=== PATIENT | male | born 1965 | race Caucasian/White ===

== ENCOUNTER 2016-12-28 00:34 | Emergency (ER) | payer OTHER ==
--- NOTE | 2016-12-28 01:04 | EKG ---
[address] [address] Test Date: 2016-12-28 Test Time: 00:45:05 Pat Name: JORGE LUIS JIANGTavaresPee Department: Room: Gender: M [employer]: : 1965 Requested By: JUSTIN KWON Order Number: [id number] Reading MD: Measurements Intervals [place] Rate: 59 P: 37 FL: 158 QRS: 51 QRSD: 132 T: 5 QT: 420 QTc: 416 Interpretive Statements SINUS RHYTHM NON SPECIFIC INTRAVENTRICULAR BLOCK QRS(T) CONTOUR ABNORMALITY CANNOT RULE OUT ANTEROSEPTAL MYOCARDIAL DAMAGE RI6.01 Unconfirmed report No previous ECG available for comparison
[2016-12-28] MEDS ORDERED: ASPIRIN 81 MG TAB.CHEW PO ONE (01:15)
[2016-12-28 01:27] LABS: BASO # 0.1 x10^3/uL (0.0-0.2); BASO % 1 % (0-3); EOS # 0.1 x10^3/uL (0.0-0.7); EOS % 1 % (0-3); HEMATOCRIT 40.6 % (39.0-53.0); HEMOGLOBIN 13.8 g/dL (13.0-17.5); LYMPH # 2.8 x10^3/uL (1.0-4.8); LYMPH % 35 % (24-48); MEAN CORPUSCULAR HEMOGLOBIN 29 pg (25-35); MEAN CORPUSCULAR HGB CONC 34 g/dL (31-37); MEAN CORPUSCULAR VOLUME 87 fL (79-100); MONO # 0.6 x10^3/uL (0.0-1.1); MONO % 8 % (0-9); NEUT # 4.5 x10^3uL (1.8-7.7); NEUT % 56 % (31-73); PLATELET COUNT 197 x10^3/uL (140-400); RED BLOOD COUNT 4.69 x10^6/uL (4.30-5.70); RED CELL DISTRIBUTION WIDTH 13.5 % (11.5-14.5); WHITE BLOOD COUNT 8.1 x10^3/uL (4.0-11.0)
[2016-12-28 01:40] LABS: ALBUMIN 3.7 g/dL (3.4-5.0); ALBUMIN/GLOBULIN RATIO 1.1 (1.0-1.7); CALCIUM 8.8 mg/dL (8.5-10.1); GFR 79.1; POTASSIUM 3.8 mmol/L (3.5-5.1); TOTAL BILIRUBIN 0.3 mg/dL (0.2-1.0); TOTAL PROTEIN 7.2 g/dL (6.4-8.2)
[2016-12-28] MEDS ORDERED: LIDO:MAALOX 1:1 20 ML SINGLE DOSE ONE (01:40)
[2016-12-28 01:46] VITALS: BP 122/69
[2016-12-28] MEDS ORDERED: OMEP20TA63 PO (01:48)
--- NOTE | 2016-12-28 01:50 | PHYS DOC ---
Past History Past Medical History: Cancer, Diabetes Past Surgical History: Appendectomy Smoking: Non-smoker Alcohol Use: None Drug Use: None Adult General Chief Complaint Chief Complaint: CHEST PAIN-CARDIAC NATURE HPI HPI 51-year-old male with a history of type 2 diabetes diagnosed recently as well as family history of coronary artery disease of a [id number] relative, now presents to the emergency department complaining of chest pain. Since going to bed tonight patient has had intermittent episodes of substernal chest spasm type pain which lasts a few seconds and then spontaneously resolves. On different occasions it was relieved by standing up. Patient does not notice since reproducible with movement or palpation. Rectal cough or fever and has had no respiratory symptoms. Nausea vomiting, diaphoresis or shortness of air. He has had no exertional chest pain. Gen. patient feels well. Does comment that he is burping a lot this evening but he does not have a chronic history of gastritis or upper GI symptoms. Review of Systems Review of Systems Constitutional: Denies fever or chills [] Eyes: Denies change in visual acuity, redness, or eye pain [] HENT: Denies nasal congestion or sore throat [] Respiratory: Denies cough or shortness of breath [] Cardiovascular: No additional information not addressed in HPI [] GI: Denies abdominal pain, nausea, vomiting, bloody stools or diarrhea [] : Denies dysuria or hematuria [] Musculoskeletal: Denies back pain or joint pain [] Integument: Denies rash or skin lesions [] Neurologic: Denies headache, focal weakness or sensory changes [] Endocrine: Denies polyuria or polydipsia [] Current Medications Current Medications Current Medications Medications (Trade) Dose Ordered Sig/[facility] Start Time Stop Time Status Last Admin Dose Admin Aspirin (Children'S Aspirin) 324 mg 1X ONCE 12/28/16 01:15 12/28/16 01:24 DC 12/28/16 01:21 324 MG Allergies Allergies Allergies Coded Allergies Type Severity Reaction Last Updated Verified No Known Allergies Allergy Unknown 04/15/16 Yes Physical Exam Physical Exam Smiling well appearing male in no acute distress. Nontender chest wall. No skin changes. Lungs regular rate and rhythm no tachycardia normal respiratory rate and pulse ox. Constitutional: Well developed, well nourished, no acute distress, non-toxic appearance. [] HENT: Normocephalic, atraumatic, bilateral external ears normal, oropharynx moist, no oral exudates, nose normal. [] Eyes: PERRLA, EOMI, conjunctiva normal, no discharge. [] Neck: Normal range of motion, no tenderness, supple, no stridor. [] Cardiovascular:Heart rate regular rhythm, no murmur [] Lungs & Thorax: Bilateral breath sounds clear to auscultation [] Abdomen: Bowel sounds normal, soft, no tenderness, no masses, no pulsatile masses. [] Skin: Warm, dry, no erythema, no rash. [] Back: No tenderness, no CVA tenderness. [] Extremities: No tenderness, no cyanosis, no clubbing, ROM intact, no edema. [] Neurologic: Alert and oriented X 3, normal motor function, normal sensory function, no focal deficits noted. [] Psychologic: Affect normal, judgement normal, mood normal. [] Current Patient Data Vital Signs Vital Signs Date Time Temp Pulse Resp B/P (MAP) Pulse Ox O2 Delivery O2 Flow Rate FiO2 12/28/16 00:50 98.0 63 20 97 Room Air Lab Results Laboratory Tests Test 12/28/16 01:15 White Blood Count 8.1 x10^3/uL (4.0-11.0) Red Blood Count 4.69 x10^6/uL (4.30-5.70) Hemoglobin 13.8 g/dL (13.0-17.5) Hematocrit 40.6 % (39.0-53.0) Mean Corpuscular Volume 87 fL (79-100) Mean Corpuscular Hemoglobin 29 pg (25-35) Mean Corpuscular Hemoglobin Concent 34 g/dL (31-37) Red Cell Distribution Width 13.5 % (11.5-14.5) Platelet Count 197 x10^3/uL (140-400) Neutrophils (%) (Auto) 56 % (31-73) Lymphocytes (%) (Auto) 35 % (24-48) Monocytes (%) (Auto) 8 % (0-9) Eosinophils (%) (Auto) 1 % (0-3) Basophils (%) (Auto) 1 % (0-3) Neutrophils # (Auto) 4.5 x10^3uL (1.8-7.7) Lymphocytes # (Auto) 2.8 x10^3/uL (1.0-4.8) Monocytes # (Auto) 0.6 x10^3/uL (0.0-1.1) Eosinophils # (Auto) 0.1 x10^3/uL (0.0-0.7) Basophils # (Auto) 0.1 x10^3/uL (0.0-0.2) EKG EKG EKG normal sinus rhythm at 59 and normal axis no STEMI. IVCB Radiology/Procedures Radiology/Procedures Chest x-ray no acute disease interpreted by me [] Course & Med Decision Making Course & Med Decision Making Pertinent Labs and Imaging studies reviewed. (See chart for details) Signs and symptoms consistent with suspected reflux and possible esophageal spasm and a 51-year-old male with cardiac risk factors of maleness ,age, diabetes, and weak family history. He can G unremarkable. Patient's clinical scenario consistent with upper GI symptoms with audible borborygmi on exam as well as frequent burping per patient. Chest x-ray unremarkable laboratory workup negative. Heart score 3 consistent with low risk category for MACE. And feels improved after GI cocktail. Patient aware of risks of outpatient follow- up and he agrees with outpatient follow-up with PCP for reevaluation and referral for outpatient stress testing and cardiology referral as needed. Other workup or treatment indicated at this time and strict return precautions will be given. [] Dragon Disclaimer Dragon Disclaimer This chart was dictated in whole or in part using Voice Recognition software in a busy, high-work load, and often noisy Emergency Department environment. It may contain unintended and wholly unrecognized errors or omissions. Departure Departure: Impression: Primary Impression: Gastroesophageal reflux disease Additional Impression: Nonspecific chest pain Disposition: 01 HOME, SELF-CARE Condition: IMPROVED Referrals: CARLOS MASSEY MD (PCP) Patient Instructions: Chest Pain (Nonspecific), Diet for Gastroesophageal Reflux Disease, Adult, Gastroesophageal Reflux Disease, Adult Additional Instructions: Your chest pain tonight is suggestive of gastroesophageal reflux disease given your excessive burping and brief intermittent nature of the pain take Prilosec as prescribed and follow up with your doctor for reevaluation and referral for stress testing and to cardiology as needed. Return immediately for new severe worsening symptoms and specifically for not limited to any exertional chest pain. Scripts Omeprazole Magnesium (PRILOSEC OTC) 20 Mg Tablet.dr 1 TAB PO DAILY, #30 TAB 3 Refills Prov: JUSTIN KWON MD 12/28/16 Problem Qualifiers JUSTIN KWON MD Dec 28, 2016 01:50
[2016-12-28] MEDS ORDERED: LIDO:MAALOX 1:1 20 ML SINGLE DOSE PO ONE (02:00)
--- NOTE | 2016-12-28 07:04 | RAD ---
Indication: Chest pain. Time of exam 0122 hours. FINDINGS: The heart size is normal. The lungs are clear. No pleural effusion or pneumothorax is identified. The pulmonary vascularity is normal. IMPRESSION: No acute abnormality detected.
== END 2016-12-28 02:03 | disposition home or self-care (01) ==
LOC: ER 00:34
DX: K21.9 Gastro-esophageal reflux disease without esophagitis (principal); R61 Generalized hyperhidrosis; R11.2 Nausea with vomiting, unspecified; E11.9 Type 2 diabetes mellitus without complications
CPT/HCPCS: 36415; 71010; 80053; 84484; 85027; 93005; 99285-25